=== PATIENT | male | born 2000 | race African-American/Black ===

== ENCOUNTER 2024-10-25 13:36 | Emergency (ER) | payer MEDICAID ==
[~2024-10-25] VITALS: Ht 177.8 cm; Wt 80.0 kg
[2024-10-25 13:41] VITALS: O2SAT 98
[2024-10-25] MEDS: SODIUM CHLORIDE 0.9% 1,000 ML IV ONE (14:50)
[2024-10-25 15:34] LABS: HEMATOCRIT. 39.3 % (42.0-52.0); HEMOGLOBIN. 13.3 g/dL (14.0-18.0); MEAN PLATELET VOLUME 7.2 fl (7.4-10.4); PLATELET 231 x1000/uL (130-400); RED BLOOD CELL COUNT 4.31 mill/uL (4.7-6.1); RED CELL DISTRIBUTION WIDTH 14.4 % (11.6-14.6)
[2024-10-25 15:57] LABS: TROPONIN I HIGH SENSITIVITY < 4 ng/L (3.0-53)
[2024-10-25 15:58] LABS: CREATININE 1.7 mg/dL (0.6-1.3); ETHANOL BLOOD < 10 mg/dL (<10); UREA NITROGEN BLOOD 21 mg/dL (9-23)
[2024-10-25 17:27] LABS: BAND% 14.0 % (1.0-6.0); LYMPHOCYTES % MANUAL 10.0 % (20.0-50.0); MONOCYTES % MANUAL 2.0 % (2.0-8.0); NEUTROPHILS % MANUAL 74.0 % (45.0-75.0); PLATELET ESTIMATE NORMAL
[2024-10-25] MEDS: ONDANSETRON 4MG ODT PO ONE (19:08)
[2024-10-25 20:56] LABS: CLARITY URINE TURBID (CLEAR); COLOR URINE ORANGE (YELLOW); GLUCOSE URINE TRACE (NEGATIVE); KETONES URINE TRACE (NEGATIVE); LEUKOCYTE ESTERASE URINE 1+ (NEGATIVE); NITRITE URINE POSITIVE (NEGATIVE); OCCULT BLOOD URINE NEGATIVE (NEGATIVE); PH URINE 6.5 (4.5-8.0); PROTEIN URINE 4+ (NEGATIVE); SPECIFIC GRAVITY URINE 1.029 (1.005-1.030); UROBILINOGEN URINE 1.0 E.U./dL (0.2-1.0)
[2024-10-25 21:08] LABS: BACTERIA URINE 3+; HYALINE CASTS URINE 0-5 /lpf; RBC URINE 0-2 /hpf (0-2); SQUAMOUS EPITHELIAL CELL URINE 1+ /lpf (RARE/1+)
[2024-10-25 21:18] LABS: *AMPHETAMINES SCREEN URINE PRESUMPTIVE POSITIVE (NEGATIVE); *BARBITURATES SCREEN URINE NEGATIVE (NEGATIVE); *BENZODIAZEPINES SCREEN URINE NEGATIVE (NEGATIVE); *COCAINE SCREEN URINE PRESUMPTIVE POSITIVE (NEGATIVE); CANNABINOID URINE SCREEN PRESUMPTIVE POSITIVE (NEGATIVE); ECSTASY MDMA SCREEN URINE NEGATIVE (NEGATIVE); METHADONE URINE SCREEN NEGATIVE (NEGATIVE); OPIATES URINE SCREEN NEGATIVE (NEGATIVE); PHENCYCLIDINE URINE SCREEN NEGATIVE (NEGATIVE)
[2024-10-25] MEDS: ONDANSETRON HCL 4MG/2ML INJ IM ONE (21:30)
[2024-10-25] MEDS: TRAZODONE HCL 50MG TABLET PO SCH (22:30)
[2024-10-26] MEDS: CEFTRIAXONE SODIUM 500MG VIAL IM NR (03:54)
[2024-10-26] MEDS: LIDOCAINE HCL 1% 20ML VIAL INFIL NR (03:55)
[2024-10-26] MEDS: OLANZAPINE 5MG TABLET ODT PO SCH (09:50)
[2024-10-27] MEDS: ONDANSETRON HCL 4MG TABLET PO ONE ×2 (07:01→09:58)
[2024-10-27] MEDS: ACETAMINOPHEN 325MG TABLET PO ONE (23:36)
[2024-10-27] MEDS: POTASSIUM CHLORIDE 20MEQ TABLET SR PO ONE (23:37)
[2024-10-27] MEDS: ONDANSETRON 4MG ODT PO ONE (23:37)
[2024-10-28] MEDS: HYDROXYZINE 25MG TABLET PO PRN (20:43)
[2024-10-28] MEDS: ONDANSETRON 4MG ODT PO ONE (22:21)
[2024-10-29 11:19] VITALS: BP 128/71; PULSE 63; RESP 16; TEMP 36.8; O2SAT 99
== END 2024-10-29 11:15 | disposition home or self-care (01) ==
LOC: ER 14:55 → CANBEDREQ 15:58 → ER 10-29 11:15
DX: R45.851 Suicidal ideations (principal); F20.9 Schizophrenia, unspecified; Z59.00 Homelessness unspecified; Z79.899 Other long term (current) drug therapy; R41.0 Disorientation, unspecified; Z20.822 Contact with and (suspected) exposure to COVID-19
CPT/HCPCS: 80305; 80048; 81003; 80307; 80329; 80320; 85025; 84484; 36415; 71045; 70450; 93005; 96360; 96372; 99285; 87426; Q0162 ×3; J2405; J7030; Z7610; J0696; J2003; G0480